=== PATIENT | female | born 1995 | race Caucasian/White ===

== ENCOUNTER 2021-06-22 19:34 | Day surgery (SDC) | payer BC ==
[2021-06-22] MEDS ORDERED: hydrALAZINE 20 MG/ML VIAL SLOW IVP PRN (19:46)
[2021-06-22 19:59] VITALS: BMI 30.9
[2021-06-22 20:47] LABS: Bilirubin Neg (Negative); Blood, Urine 25 (Negative); Clarity Clear (Clear); Glucose, Urine (Dipstick) Normal (Negative); Ketone, Urine 150 mg/dL (Negative); Leukocyte Negative (Negative); Nitrite Negative (Negative); Protein, Urine (Dipstick) 15 mg/dl (Neg-Trace); Urobilinogen Normal mg/dL (Less than 2)
[2021-06-22 20:49] LABS: SARS-CoV-2 NAA Rapid Test DETECTED (NotDetected)
[2021-06-22 20:51] LABS: Urine Culture Reflex No No
[2021-06-22 20:55] LABS: Squamous Epithelial 0-3 HPF (0-3); WBC/HPF 0-3 HPF (0-3)
[2021-06-22 20:56] LABS: Bacteria/HPF 1+ HPF (None Seen); RBC/HPF 0-3 HPF (0-3)
[2021-06-22 20:59] LABS: #Monocytes 0.7 10x3/uL (0.0-1.1); #Neutrophils 5.6 10x3/uL (1.5-8.4); %Basophils 0.4 % (0.0-2.0); %Eosinophils 0.5 % (0.0-6.0); %Lymphocytes 12.8 % (18.0-47.0); %Monocytes 8.9 % (0.0-10.0); %Neutrophils 76.9 % (40.0-75.0); Hemoglobin 9.5 g/dL (12.0-15.5); Mean Corpuscular HGB CONC 33.2 g/dL (32.0-36.0); Mean Corpuscular Hemoglobin 29.4 pg (27.0-33.0); Mean Corpuscular Volume 88.5 fl (81.6-98.3); Mean Platelet Volume 10.2 fl (7.4-10.4); Platelet Count 217 10x3/uL (150-450); RBC Distribution Width 12.6 % (11.5-14.5); Red Blood Cell (RBC) Count 3.23 10x6/uL (3.90-5.03); White Blood Cell (WBC) Count 7.3 10x3/uL (3.5-10.5)
== END 2021-06-22 22:18 | disposition home or self-care (01) ==
LOC: CSHLD/OP 19:34
PROVIDERS: ATTEND Student in an Organized Health Care Education/Training Program
DX: O98.513 Other viral diseases complicating pregnancy, third trimester (principal); U07.1 COVID-19; O99.283 Endocrine, nutritional and metabolic diseases complicating pregnancy, third trimester; E86.0 Dehydration; Z3A.32 32 weeks gestation of pregnancy; Z88.2 Allergy status to sulfonamides
CPT/HCPCS: 0240U; 36415; 81001; 85025; 87086

== ENCOUNTER 2021-07-20 11:44 | Day surgery (SDC) | payer BC ==
[2021-07-20 12:29] VITALS: BMI 31.1
[2021-07-20 13:13] LABS: Fetal Membranes Rupture No Membranes Rupture (No Rupture)
[2021-07-20] MEDS ORDERED: hydrALAZINE 20 MG/ML VIAL SLOW IVP PRN (13:21)
[2021-07-20] MEDS ORDERED: Lactated Ringer's 1,000 ML IV SCH ×2 (13:30)
== END 2021-07-20 14:45 | disposition home or self-care (01) ==
LOC: CSHSDC/OP 11:44 → CSHLD/OP 14:45
PROVIDERS: ATTEND Student in an Organized Health Care Education/Training Program
DX: O47.03 False labor before 37 completed weeks of gestation, third trimester (principal); Z3A.36 36 weeks gestation of pregnancy; Z86.16 Personal history of COVID-19; Z79.899 Other long term (current) drug therapy; Z88.2 Allergy status to sulfonamides
CPT/HCPCS: 84112

== ENCOUNTER 2021-07-31 05:53 | Inpatient (IN) | payer BC ==
[2021-07-31] MEDS ORDERED: Bupivacaine HCl 0.5%/Epinephrine 1:200,000/PF 30 ml Vial ONE (06:00)
[2021-07-31 06:27] VITALS: BMI 31.5
[2021-07-31 06:29] LABS: Fetal Membranes Rupture RUPTURE DETECTED (No Rupture)
[2021-07-31] MEDS ORDERED: Promethazine HCl 25 MG/ML VIAL IM PRN ×3 (06:39→21:08)
[2021-07-31] MEDS ORDERED: HYDROcodone/Acetaminophen 5/325 mg Tablet PO PRN ×4 (06:39→21:08)
[2021-07-31] MEDS ORDERED: Butorphanol Tartrate 1 MG/ML VIAL SLOW IVP PRN (06:39)
[2021-07-31] MEDS ORDERED: Ibuprofen 800 MG TAB PO PRN (06:39)
[2021-07-31] MEDS ORDERED: hydrALAZINE 20 MG/ML VIAL SLOW IVP PRN ×2 (06:39→21:08)
[2021-07-31] MEDS ORDERED: Ondansetron PF 4 MG/2 ML Vial IVP PRN ×3 (06:39→21:08)
[2021-07-31] MEDS ORDERED: Lidocaine 1% (PF) 30 ML VIAL SC PRN (06:39)
[2021-07-31] MEDS ORDERED: Carboprost 250 MCG/ML AMP IM PRN (06:39)
[2021-07-31] MEDS ORDERED: Methylergonovine 0.2 MG/ML VIAL IM PRN (06:39)
[2021-07-31] MEDS ORDERED: Acetaminophen 500 MG TAB PO PRN (06:39)
[2021-07-31] MEDS ORDERED: Diphenoxylate HCl/Atropine Tablet PO PRN ×2 (06:39)
[2021-07-31] MEDS ORDERED: Misoprostol 200 MCG TAB PR PRN (06:39)
[2021-07-31] MEDS ORDERED: Lactated Ringer's 1,000 ML IV SCH (06:45)
[2021-07-31] MEDS ORDERED: NS w/ Oxytocin 30 units 500 ML IV SCH ×2 (06:45)
[2021-07-31 08:02] LABS: Hemoglobin 9.4 g/dL (12.0-15.5); Mean Corpuscular HGB CONC 32.4 g/dL (32.0-36.0); Mean Corpuscular Hemoglobin 27.4 pg (27.0-33.0); Mean Corpuscular Volume 84.5 fl (81.6-98.3); Mean Platelet Volume 11.3 fl (7.4-10.4); Platelet Count 246 10x3/uL (150-450); RBC Distribution Width 13.5 % (11.5-14.5); Red Blood Cell (RBC) Count 3.43 10x6/uL (3.90-5.03); White Blood Cell (WBC) Count 11.4 10x3/uL (3.5-10.5)
[2021-07-31 08:43] LABS: Hep B Surf Ag Non-Reactive S/CO (NonReactive)
[2021-07-31 08:44] LABS: Syphilis Antibody Nonreactive (Nonreactive); Syphilis Antibody Index 0.04 S/CO (<1.00 Non-Reactive)
[2021-07-31 08:57] LABS: HBSAg Index 0.19 S/CO (0-0.99)
[2021-07-31] MEDS ORDERED: Fentanyl 2 mcg/Bup 0.1% Cadd 100 ML ONE (11:47)
[2021-07-31] MEDS ORDERED: diphenhydrAMINE 50 MG/ML VIAL IVP PRN (13:11)
[2021-07-31] MEDS ORDERED: Naloxone HCl 0.4 mg/ml Vial IVP PRN ×2 (13:11)
[2021-07-31] MEDS ORDERED: Lactated Ringer's 500 ML IV PRN (13:11)
[2021-07-31] MEDS ORDERED: ePHEDrine Sulfate 50 MG/10 ML VIAL SLOW IVP PRN (13:11)
[2021-07-31] MEDS ORDERED: Hydrocerin (Eucerin) Cream 120 gm Jar TOP PRN (13:11)
[2021-07-31] MEDS ORDERED: Acetaminophen 325 MG TAB PO PRN (13:11)
[2021-07-31] MEDS ORDERED: Fentanyl 2 mcg/Bupivacaine 0.1% Cassette 100 ML EPIDURAL SCH (13:15)
[2021-07-31] MEDS ORDERED: Communication Order-Pharmacy FS SCH (13:15)
[2021-07-31] MEDS ORDERED: Benzocaine-Menthol 82.5 ML CAN TOP PRN (21:08)
[2021-07-31] MEDS ORDERED: diphenhydrAMINE 25 MG CAP PO PRN (21:08)
[2021-07-31] MEDS ORDERED: Lanolin Ointment 7 GM TUBE TOP PRN (21:08)
[2021-07-31] MEDS ORDERED: Boostrix 0.5 ML (Tdap) VIAL IM ONE (21:08)
[2021-07-31] MEDS ORDERED: Milk Of Magnesia 30 ML UDCUP PO PRN (21:08)
[2021-07-31] MEDS ORDERED: Preparation H Ointment 28 GM TUBE PR PRN (21:08)
[2021-07-31] MEDS ORDERED: Bisacodyl 10 MG SUPP PR PRN (21:08)
[2021-07-31] MEDS: Docusate 100 MG CAP PO SCH (21:44)
[2021-07-31] MEDS: Ibuprofen 800 MG TAB PO SCH (21:44)
[2021-08-01 04:26] LABS: Hemoglobin 8.4 g/dL (12.0-15.5)
[2021-08-01] MEDS: Ibuprofen 800 MG TAB PO SCH ×2 (05:52→14:15)
[2021-08-01] MEDS ORDERED: Prenatal Vitamin 1 TAB PO SCH (09:00)
[2021-08-01] MEDS: Ferrous Sulfate 325 MG TAB PO SCH ×2 (09:06→17:57)
[2021-08-01] MEDS: Docusate 100 MG CAP PO SCH (09:07)
[2021-08-01 11:11] VITALS: TEMP 98.2
[2021-08-01 20:10] VITALS: BP 134/73
== END 2021-08-01 20:08 | disposition home or self-care (01) | DRG 807 ==
LOC: CSHLD/OP 05:53 → CSHLD 06:46 → CSHPP 20:40
PROVIDERS: ADMIT Student in an Organized Health Care Education/Training Program; ATTEND Student in an Organized Health Care Education/Training Program
PROC: 10E0XZZ Delivery of Products of Conception, External Approach (ICD-10-PCS; principal; 2021-07-31)
DX: O69.81X0 Labor and delivery complicated by cord around neck, without compression, not applicable or unspecified (principal); Z37.0 Single live birth; Z3A.37 37 weeks gestation of pregnancy; O99.344 Other mental disorders complicating childbirth; F32.A Depression, unspecified; Z20.822 Contact with and (suspected) exposure to COVID-19; O99.02 Anemia complicating childbirth; D50.9 Iron deficiency anemia, unspecified; Z88.2 Allergy status to sulfonamides
CPT/HCPCS: 36415; 51702; 84112; 85014; 85018; 85027; 86780; 86850; 86900; 86901; 87340; 99285